=== PATIENT | female | born 1960 | race Caucasian/White ===

== ENCOUNTER 2018-09-21 10:22 | Emergency (ER) | payer MEDICARE, BC ==
[2018-09-21 11:34] LABS: Hematocrit 39.2 % (35-47); Hemoglobin 12.5 gm/dl (12.0-16.0); Mean Cell Volume 97.3 fl (78-100); Mean Corpuscular Hgb Concent. 31.9 g/dl (32-36); Mean Platelet Volume 9.2 fl (6-9.5); Platelet Count 222 K/mm3 (150-450); Red Blood Count 4.03 M/mm3 (4.1-5.4); Red Cell Distribution Width 14.5 % (11.5-14.0); White Blood Count 5.4 K/mm3 (4.0-10.5)
[2018-09-21] MEDS ORDERED: Sodium Chloride 0.9% 1000 ML 1,000 ML ONE (11:37)
[2018-09-21] MEDS ORDERED: Hydromorphone 1 mg/ml Ampule ONE (11:37)
[2018-09-21] MEDS: Sodium Chloride 0.9% 1000 ML 1,000 ML IV STA (11:40)
[2018-09-21] MEDS: Hydromorphone 1 mg/ml Ampule IV ONE (11:40)
[2018-09-21 11:45] LABS: ALKALINE PHOSPHATASE 117 U/L (38-126); ANION GAP 11.4 MEQ/L (5-15); BLOOD UREA NITROGEN 29 mg/dL (7-17); CHLORIDE 107 mmol/L (98-107); Calcium 9.2 mg/dL (8.4-10.2); Carbon Dioxide 26 mmol/L (22-30); Creatinine 1 0.81 mg/dL (0.52-1.04); Glucose 133 mg/dL (74-106); Potassium 4.6 mmol/L (3.5-5.1); SGOT/AST 58 U/L (14-36); SGPT/ALT 90 U/L (0-35); SODIUM 139 mmol/L (137-145); Total Protein 7.2 g/dL (6.3-8.2)
[2018-09-21 12:02] LABS: BAND 1 % (0.0-2.0); Eosinophil 6 % (0.00-3.0); Lymphocytes 29 % (24-44); Monocyte 11 % (0.0-12.0); Neutrophils 53 % (36.0-66.0); Platelet Estimate NORMAL (NORMAL); Total Cells Counted 100
[2018-09-21 13:09] VITALS: O2SAT 100
[2018-09-21 13:15] LABS: Appearance CLEAR (CLEAR); Bilirubin NEGATIVE (NEGATIVE); Blood NEGATIVE Ery/ul (0-5); Glucose NEGATIVE (NEGATIVE); Ketones TRACE (NEGATIVE); Leukocyte Esterase NEGATIVE (NEGATIVE); Nitrite NEGATIVE (NEGATIVE); Protein,Urine Dip NEGATIVE (Negative); Specific Gravity 1.016 (1.005-1.025); Urobilinogen NEGATIVE mg/dL (0-1)
[2018-09-21 14:06] VITALS: BP 162/93; PULSE 75
--- NOTE | 2018-09-21 14:30 | ERPHSYRPT ---
- History of Present Illness Source: patient Exam Limitations: no limitations Patient Subjective Stated Complaint: lower back pain that radiates into right leg for two weeks. Triage Nursing Assessment: ambulated to room per self holding lower back and moaning. skin w/d, color normal, resp easy. patient tearful at times. denies any urinary issues at this time. states has been having tests done for RA Physician History: Pt is a 57 y/o female with a h/o OA, that had two weeks of back pain, in the lumbar region. Pt states, the pain radiates to the front of her R thigh. The pain is worse with ambulation and flexion of the spine. Pt denies dysuria, frequency and urgency. No F/C/S. Timing/Duration: week(s) Method of Injury: unknown Quality: sharp, stabbing Back Pain Location: lumbar spine Back Pain Radiation: upper legs (R thigh) Severity of Pain-Max: severe Severity of Pain-Current: mild Modifying Factors: Improves With: pain medication Associated Symptoms: denies symptoms Previous symptoms: no prior history Allergies/Adverse Reactions: codeine Allergy (Verified 09/21/18 10:38) Home Medications: Atorvastatin Calcium [Lipitor] 40 mg PO DAILY 09/21/18 [History] Citalopram Hydrobromide 20 mg* [ceLEXa 20 MG] 20 mg PO DAILY 09/21/18 [ History] Gabapentin 200 mg PO DAILY 09/21/18 [History] Gabapentin 300 mg PO HS 09/21/18 [History] KETOROLAC trometh 30 mg Inj [TORAdol 30 mg Injection] 30 mg IJ [History] Leucovorin Calcium 5 mg PO WEEKLY 09/21/18 [History] Levothyroxine Sodium 112 mcg PO DAILY 09/21/18 [History] Methotrexate Sodium 2.5 mg [Trexall 2.5 mg] 2.5 mg PO UD 09/21/18 [History ] Nalbuphine HCl 20 mg IJ 09/21/18 [History] Omeprazole 20 mg PO DAILY 09/21/18 [History] Tizanidine HCl 4 mg [Zanaflex 4 MG] 4 mg PO DAILY 09/21/18 [History] sulfaSALAzine [Sulfasalazine] 500 mg PO DAILY 09/21/18 [History] Hx Tetanus, Diphtheria Vaccination/Date Given: No Hx Influenza Vaccination/Date Given: No Hx Pneumococcal Vaccination/Date Given: Yes - Review of Systems Constitutional: No Fever, No Chills Eyes: No Symptoms Ears, Nose, & Throat: No Symptoms Respiratory: No Cough, No Dyspnea Cardiac: No Chest Pain, No Edema, No Syncope Abdominal/Gastrointestinal: No Abdominal Pain, No Nausea, No Vomiting, No Diarrhea Genitourinary Symptoms: No Dysuria Musculoskeletal: Back Pain (Lumbar area), No Neck Pain Neurological: No Dizziness, No Focal Weakness, No Sensory Changes - Past Medical History Pertinent Past Medical History: Yes Neurological History: Migraines Endocrine Medical History: Hypothyroidism Musculoskeletal History: Rheumatoid Arthritis GI Medical History: Gallbladder Disease Female Reproductive Disorders: Other - Past Surgical History Past Surgical History: Yes Gastrointestinal: Appendectomy, Cholecystectomy Other Surgical History: tubes and ovaries removed, partial thyroid removed - Social History Smoking Status: Never smoker Exposure to second hand smoke: No Drug Use: none Patient Lives Alone: No - Nursing Vital Signs Nursing Vital Signs: Initial Vital Signs Temperature 97.5 F 09/21/18 10:32 Pulse Rate 98 H 09/21/18 10:32 Respiratory Rate 18 09/21/18 10:32 Blood Pressure 125/83 09/21/18 10:32 O2 Sat by Pulse Oximetry 100 09/21/18 10:32 Pain Scale Pain Intensity [Back] 10 Pain Intensity 0 - Physical Exam General Appearance: moderate distress (Secondary to pain) Eye Exam: PERRL/EOMI, eyes nml inspection Neck Exam: normal inspection, non-tender, supple, full range of motion, No meningismus, No midline tenderness Respiratory Exam: normal breath sounds, lungs clear, No respiratory distress Cardiovascular Exam: regular rate/rhythm, normal heart sounds Gastrointestinal Exam: soft, No tenderness, No mass Back Exam: normal range of motion, muscle spasm, other (tenderness with flexion of the hip on R) Extremity Exam: normal inspection, normal range of motion, No calf tenderness, No pedal edema Neurologic Exam: alert, oriented x 3, 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, 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, normal mood/affect, nml station & gait, sensation nml, No motor deficits SpO2 Interpretation: normal SpO2: 100 - Course Nursing assessment & vital signs reviewed: Yes - Radiology Exams L-Spine X-ray Interpretation: Interpreted by me (levoscoliosis) - CT Exams Lumbar Spine CT Interpretation: Other (DDD, stenosis of the spine and facets.) Ordered Tests: Active Orders 24 hr Category Date Time Status IV Insertion STAT Care 09/21/18 10:48 Active LUMBAR COMPLETE (MIN 4 VIEWS) Stat Exams 09/21/18 10:49 Taken LUMBAR SPINE W/O [CT] Stat Exams 09/21/18 11:49 Taken CBC W DIFF Stat Lab 09/21/18 11:30 Completed CMP Stat Lab 09/21/18 11:30 Completed Manual Differential NC Stat Lab 09/21/18 11:30 Completed UA W/RFX UR CULTURE Stat Lab 09/21/18 13:04 Completed Medication Summary Discontinued Medications Generic Name Dose Route Start Last Admin Trade Name Freq PRN Reason Stop Dose Admin Hydromorphone HCl 1 mg 09/21/18 10:48 09/21/18 11:40 Hydromorphone 1 Mg/Ml Ampule IV 09/21/18 10:49 1 mg STAT ONE Administration Hydromorphone HCl Confirm 09/21/18 11:37 Hydromorphone 1 Mg/Ml Ampule Administered 09/21/18 11:38 Dose 1 mg .ROUTE .STK-MED ONE Sodium Chloride 1,000 mls @ 999 mls/hr 09/21/18 10:48 09/21/18 11:40 Sodium Chloride 0.9% 1000 Ml IV 09/21/18 11:48 999 mls/hr .Q1H1M STA Administration Sodium Chloride Confirm 09/21/18 11:37 Sodium Chloride 0.9% 1000 Ml Administered 09/21/18 11:38 Dose 1,000 mls @ ud .ROUTE .STK-MED ONE Lab/Rad Data: Laboratory Result Diagrams 09/21/18 11:30 09/21/18 11:30 Laboratory Results 09/21/18 09/21/18 09/21/18 Range/Units 13:04 11:30 11:30 WBC 5.4 (4.0-10.5) K/mm3 RBC 4.03 L (4.1-5.4) M/mm3 Hgb 12.5 (12.0-16.0) gm/dl Hct 39.2 (35-47) % MCV 97.3 (78-100) fl MCH 31.0 (26-32) pg MCHC 31.9 L (32-36) g/dl RDW 14.5 H (11.5-14.0) % Plt Count 222 (150-450) K/mm3 MPV 9.2 (6-9.5) fl Segmented Neutrophils 53 (36.0-66.0) % Band Neutrophils 1 (0.0-2.0) % Lymphocytes (Manual) 29 (24-44) % Monocytes (Manual) 11 (0.0-12.0) % Eosinophils (Manual) 6 H (0.00-3.0) % Platelet Estimate NORMAL (NORMAL) RBC Morphology NORMAL Sodium 139 (137-145) mmol/L Potassium 4.6 (3.5-5.1) mmol/L Chloride 107 (98-107) mmol/L Carbon Dioxide 26 (22-30) mmol/L Anion Gap 11.4 (5-15) MEQ/L BUN 29 H (7-17) mg/dL Creatinine 0.81 (0.52-1.04) mg/dL Estimated GFR > 60.0 ML/MIN Glucose 133 H (74-106) mg/dL Calcium 9.2 (8.4-10.2) mg/dL Total Bilirubin 0.70 (0.2-1.3) mg/dL AST 58 H (14-36) U/L ALT 90 H (0-35) U/L Alkaline Phosphatase 117 (38-126) U/L Serum Total Protein 7.2 (6.3-8.2) g/dL Albumin 4.0 (3.5-5.0) g/dL Urine Color YELLOW (YELLOW) Urine Appearance CLEAR (CLEAR) Urine pH 7.0 (5-6) Ur Specific [place] 1.016 (1.005-1.025) Urine Protein NEGATIVE (Negative) Urine Ketones TRACE (NEGATIVE) Urine Blood NEGATIVE (0-5) Maximino/ul Urine Nitrite NEGATIVE (NEGATIVE) Urine Bilirubin NEGATIVE (NEGATIVE) Urine Urobilinogen NEGATIVE (0-1) mg/dL Ur Leukocyte Esterase NEGATIVE (NEGATIVE) Urine WBC (Auto) NONE (0-5) /HPF Urine RBC (Auto) NONE (0-2) /HPF U Epithel Cells (Auto) NONE (FEW) /HPF Urine Bacteria (Auto) NONE (NEGATIVE) /HPF Urine Culture Reflexed NO (NO) Urine Glucose NEGATIVE (NEGATIVE) mg/dL - Progress Progress: improved Progress Note: 09/21/18 14:33 Pt had Dilaudid 1mg IV and her pain improved. Labs were normal with no leukocytosis, and clean UA. CT of the spine showed stenosis, and DDD. Pt was informed about the results of imaging, and is encouraged to f/u with PCP, and her compliance testing analyst. Will see patient in: office Counseled pt/family regarding: need for follow-up - Departure Time of Disposition: 14:35 Departure Disposition: Home Clinical Impression: Lumbar back pain with radiculopathy affecting right lower extremity Condition: Stable Critical Care Time: No Referrals: LAURA HAYDEN [Primary Care Provider] - Additional Instructions: Take pain meds as were prescribed to you before. F/U with PCP and compliance testing analyst.
--- NOTE | 2018-09-21 21:36 | XRAY ---
Indication: Severe low back pain. No known injury. Comparison: None 5 views of the lumbar spine demonstrates 5 lumbar vertebral segments with moderate levorotoscoliosis centered at L2 and mild/moderate multilevel degenerative spondylosis including bilateral L4-S1 degenerative facet hypertrophy. No acute fracture, subluxation, or pars interarticularis defect. Incidental cholecystectomy clips. Impression: Nonacute lumbar spine with chronic features.
--- NOTE | 2018-09-21 21:39 | XRAY ---
Indication: Severe back pain. No known injury. Multiple contiguous axial images obtained through the lumbar spine. Sagittal and coronal reformatted images obtained. Comparison: None Axial images at the T12-L1 level negative for large disc herniation, spinal canal, or foraminal stenosis. At the L1-L2-L3-L4 levels, there is mild annular disc bulge slightly effacing the thecal sac. Also mild degenerative vacuum disc phenomena at the L1-L3 levels. Facets are symmetric. No large disc herniation, spinal canal, foraminal stenosis. At the L4-L5-S1 levels, there is left foraminal narrowing due to broad-based disc osteophyte complex and mild/moderate bilateral degenerative facet hypertrophy. No large disc herniation or spinal canal stenosis. Sagittal and coronal reformatted images demonstrates moderate levorotoscoliosis centered at the L2-L3 level. Mild L1-L3 and L4-L5 disc space narrowing. No acute compression fracture or subluxation. Visualized noncontrasted soft tissues demonstrates cholecystectomy clips and minimal aortoiliac calcifications. Impression: 1. Multilevel degenerative disc disease and levorotoscoliosis. 2. Negative acute fracture/subluxation. Comment: Preliminary interpretation was made by [facility]. No critical discrepancy. CTDI 66.86
== END 2018-09-21 14:45 | disposition home or self-care (01) ==
LOC: ED 10:22
DX: M54.5 Low back pain (principal); M54.10 Radiculopathy, site unspecified; E03.9 Hypothyroidism, unspecified; M06.9 Rheumatoid arthritis, unspecified; Z79.899 Other long term (current) drug therapy
CPT/HCPCS: 36000; 36415; 72110; 72131; 80053; 81001; 85025; 96360; 96374; 99284; J1170

== ENCOUNTER 2021-10-07 11:14 | Emergency (ER) | payer MEDICARE, BC ==
[2021-10-07] MEDS ORDERED: Sodium Chloride 0.9% 1000 ML 1,000 ML IV STA ×2 (11:23→12:32)
[2021-10-07] MEDS ORDERED: Zofran 4 MG/2 ML VIAL IV ONE (11:23)
[2021-10-07] MEDS ORDERED: Zofran 4 MG/2 ML VIAL ONE (11:38)
[2021-10-07] MEDS ORDERED: Sodium Chloride 0.9% 1000 ML 1,000 ML ONE ×2 (11:38→12:42)
--- NOTE | 2021-10-07 11:45 | ERPHSYRPT ---
- History of Present Illness Time Seen by Provider: 10/07/21 11:41 Historian: patient Exam Limitations: no limitations Patient Subjective Stated Complaint: vomiting and diarrhea since yesterday. Triage Nursing Assessment: C/o vomiting and diarrhea since yesterday. 10 diarrhea stools since midnight last night. vomiting today off and on, c/o cram ping in abd. No fever. Physician History: vomiting and diarrhea since yesterday. 10 diarrhea stools since midnight last night. vomiting today off and on, c/o cramping in abd. No fever. Started yesterday afier eating sandwich. Timing/Duration: yesterday Activities at Onset: none Severity of Pain-Max: none Severity of Pain-Current: none Associated Symptoms: diarrhea, nausea, vomiting Previous symptoms: no prior history Allergies/Adverse Reactions: codeine Allergy (Verified 09/21/18 10:38) Home Medications: Atorvastatin Calcium [Lipitor] 40 mg PO DAILY 09/21/18 [History] Citalopram Hydrobromide 20 mg* [ceLEXa 20 MG] 20 mg PO DAILY 09/21/18 [History] Gabapentin 200 mg PO DAILY 09/21/18 [History] Gabapentin 300 mg PO HS 09/21/18 [History] KETOROLAC trometh 30 mg Inj [TORAdol 30 mg Injection] 30 mg [facility] 09/21/18 [History] Leucovorin Calcium 5 mg PO WEEKLY 09/21/18 [History] Levothyroxine Sodium 112 mcg PO DAILY 09/21/18 [History] Methotrexate Sodium 2.5 mg [Trexall 2.5 mg] 2.5 mg PO UD 09/21/18 [History] Nalbuphine HCl 20 mg [facility] 09/21/18 [History] Omeprazole 20 mg PO DAILY 09/21/18 [History] Tizanidine HCl 4 mg [Zanaflex 4 MG] 4 mg PO DAILY 09/21/18 [History] sulfaSALAzine [Sulfasalazine] 500 mg PO BID 09/21/18 [History] Cyanocobalamin 1000 Mcg/ml [Cyanocobalamin B-12 1000 MCG/ML] 1,000 mcg IM WEEKLY 10/07/21 [History] Hx Tetanus, Diphtheria Vaccination/Date Given: No Hx Influenza Vaccination/Date Given: No Hx Pneumococcal Vaccination/Date Given: Yes Immunizations Up to Date: Yes Travel Risk - International Travel Have you traveled outside of the country in past 3 weeks: No - Coronavirus Screening Symptoms: Vomiting/Diarrhea Close contact with a COVID-19 positive Pt in past 14-21 Days: No - Vaccine Status Have you recieved a Covid-19 vaccination: Yes Clinical Data Management Manager: Moderna - Vaccination Dates Date of 2cond Vaccination (if applicable): October 2020 - Review of Systems Constitutional: No Fever, No Chills Eyes: No Symptoms Ears, Nose, & Throat: No Symptoms Respiratory: No Cough, No Dyspnea Cardiac: No Chest Pain, No Edema, No Syncope Abdominal/Gastrointestinal: Nausea, Vomiting, Diarrhea, No Abdominal Pain Genitourinary Symptoms: No Dysuria Musculoskeletal: No Back Pain, No Neck Pain Skin: No Rash Neurological: No Dizziness, No Focal Weakness, No Sensory Changes Psychological: No Symptoms Endocrine: No Symptoms All Other Systems: Reviewed and Negative - Past Medical History Pertinent Past Medical History: Yes Neurological History: Migraines Endocrine Medical History: Hypothyroidism Musculoskeletal History: Rheumatoid Arthritis GI Medical History: Gallbladder Disease Female Reproductive Disorders: Other - Past Surgical History Past Surgical History: Yes Gastrointestinal: Appendectomy, Cholecystectomy Other Surgical History: tubes and ovaries removed, partial thyroid removed. Low back surgery 2020 at [facility]. - Social History Smoking Status: Never smoker Exposure to second hand smoke: No Drug Use: none Patient Lives Alone: Yes - Nursing Vital Signs Nursing Vital Signs: Initial Vital Signs Temperature 98.5 F 10/07/21 11:21 Pulse Rate 86 10/07/21 11:21 Respiratory Rate 20 10/07/21 11:21 Blood Pressure 138/97 10/07/21 11:21 O2 Sat by Pulse Oximetry 99 10/07/21 11:21 Pain Scale Pain Intensity 5 - Physical Exam General Appearance: no apparent distress, alert Eye Exam: PERRL/EOMI, eyes nml inspection Ears, Nose, Throat Exam: normal ENT inspection, pharynx normal, moist mucous membranes Neck Exam: normal inspection, non-tender, supple, full range of motion Respiratory Exam: normal breath sounds, lungs clear, No respiratory distress Cardiovascular Exam: regular rate/rhythm, normal heart sounds Gastrointestinal/Abdomen Exam: soft, No tenderness, No mass Back Exam: normal inspection, normal range of motion, No CVA tenderness, No vertebral tenderness Extremity Exam: normal inspection, normal range of motion, pelvis stable Neurologic Exam: alert, oriented x 3, cooperative, normal mood/affect, nml cerebellar function, sensation nml, No motor deficits Skin Exam: normal color, warm, dry SpO2: 99 - Course Nursing assessment & vital signs reviewed: Yes Ordered Tests: Active Orders 24 hr Category Date Time Status AMYLASE Stat Lab 10/07/21 11:35 Completed CBC W DIFF Stat Lab 10/07/21 11:35 Completed CMP Stat Lab 10/07/21 11:35 Completed CULTURE,URINE Stat Lab 10/07/21 11:36 Received LIPASE Stat Lab 10/07/21 11:35 Completed Urine Triage Profile Stat Lab 10/07/21 11:36 Completed Medication Summary Discontinued Medications Generic Name Dose Route Start Last Admin Trade Name Freq PRN Reason Stop Dose Admin Sodium Chloride 1,000 mls @ 999 mls/hr 10/07/21 11:23 10/07/21 12:43 Sodium Chloride 0.9% 1000 Ml IV 10/07/21 12:23 Infused .Q1H1M STA Infusion Sodium Chloride Confirm 10/07/21 11:38 Sodium Chloride 0.9% 1000 Ml Administered 10/07/21 11:39 Dose 1,000 mls @ ud .ROUTE .STK-MED ONE Sodium Chloride 1,000 mls @ 999 mls/hr 10/07/21 12:32 10/07/21 13:51 Sodium Chloride 0.9% 1000 Ml IV 10/07/21 13:32 Infused .Q1H1M STA Infusion Sodium Chloride Confirm 10/07/21 12:42 Sodium Chloride 0.9% 1000 Ml Administered 10/07/21 12:43 Dose 1,000 mls @ ud .ROUTE .STK-MED ONE Ondansetron HCl 4 mg 10/07/21 11:23 10/07/21 11:39 Ondansetron Hcl 4 Mg/2 Ml Vial IV 10/07/21 11:24 4 mg STAT ONE Administration Ondansetron HCl Confirm 10/07/21 11:38 Ondansetron Hcl 4 Mg/2 Ml Vial Administered 10/07/21 11:39 Dose 4 mg .ROUTE .STK-MED ONE Lab/Rad Data: Laboratory Result Diagrams 10/07/21 11:35 10/07/21 11:35 Laboratory Results 10/07/21 10/07/2122 Range/Units 11:36 11:36 11:35 WBC (4.0-10.5) K/mm3 RBC (4.1-5.4) M/mm3 Hgb (12.0-16.0) gm/dl Hct (35-47) % MCV (78-100) fl MCH (26-32) pg MCHC (32-36) g/dl RDW (11.5-14.0) % Plt Count (150-450) K/mm3 MPV (7.5-11.0) fl Gran % (36.0-66.0) % Eos # (Auto) (0-0.5) Absolute Lymphs (auto) (1.0-4.6) Absolute Monos (auto) (0.0-1.3) Lymphocytes % (24.0-44.0) % Monocytes % (0.0-12.0) % Eosinophils % (0.00-5.0) % Basophils % (0.0-0.4) % Absolute Granulocytes (1.4-6.9) Basophils # (0-0.4) Sodium 139 (137-145) mmol/L Potassium 4.4 (3.5-5.1) mmol/L Chloride 109 H (98-107) mmol/L Carbon Dioxide 21 L (22-30) mmol/L Anion Gap 13.1 (5-15) MEQ/L BUN 17 (7-17) mg/dL Creatinine 0.88 (0.52-1.04) mg/dL Estimated GFR > 60.0 ML/MIN Glucose 107 H (74-106) mg/dL Calcium 8.7 (8.4-10.2) mg/dL Total Bilirubin 0.70 (0.2-1.3) mg/dL AST 85 H (14-36) U/L ALT 47 H (0-35) U/L Alkaline Phosphatase 119 (38-126) U/L Serum Total Protein 7.6 (6.3-8.2) g/dL Albumin 3.8 (3.5-5.0) g/dL Amylase 182 H (30-110) U/L Lipase 189 (23-300) U/L Urinalys Dipstick Clnc MAIN LAB Urine Color YELLOW (YELLOW) Urine Appearance CLEAR (CLEAR) Urine pH 6.0 (5-6) Ur Specific [place] >=1.030 (1.005-1.025) POC Urine Protein Conf 30 (Negative) Urine Ketones NEGATIVE (NEGATIVE) Urine Nitrite NEGATIVE (NEGATIVE) Urine Bilirubin SMALL (NEGATIVE) Urine Urobilinogen 0.2 (0-1) mg/dL Urine Leukocytes NEGATIVE (NEGATIVE) Urine WBC (Auto) 6-10 (0-5) /HPF Urine RBC (Auto) 26-50 (0-2) /HPF U Epithel Cells (Auto) FEW (FEW) /HPF Urine Bacteria (Auto) RARE (NEGATIVE) /HPF Urine RBC LARGE (0-5) Maximino/ul Urine Mucus (Auto) MANY (NEGATIVE) /HPF Ur Culture Indicated? YES Urine Glucose NEGATIVE (NEGATIVE) mg/dL Urine Opiates Level NEGATIVE (NEGATIVE) Ur Methadone NEGATIVE (NEGATIVE) Urine Barbiturates NEGATIVE (NEGATIVE) Ur Phencyclidine (PCP) NEGATIVE (NEGATIVE) Urine Amphetamine NEGATIVE (NEGATIVE) U Benzodiazepine Level NEGATIVE (NEGATIVE) Urine Cocaine NEGATIVE (NEGATIVE) Urine Marijuana (THC) NEGATIVE (NEGATIVE) 10/07/21 Range/Units 11:35 WBC 4.9 (4.0-10.5) K/mm3 RBC 3.59 L (4.1-5.4) M/mm3 Hgb 12.3 (12.0-16.0) gm/dl Hct 38.1 (35-47) % MCV 106.1 H (78-100) fl MCH 34.3 H (26-32) pg MCHC 32.3 (32-36) g/dl RDW 13.0 (11.5-14.0) % Plt Count 207 (150-450) K/mm3 MPV 9.2 (7.5-11.0) fl Gran % 57.3 (36.0-66.0) % Eos # (Auto) 0.07 (0-0.5) Absolute Lymphs (auto) 1.45 (1.0-4.6) Absolute Monos (auto) 0.55 (0.0-1.3) Lymphocytes % 29.5 (24.0-44.0) % Monocytes % 11.2 (0.0-12.0) % Eosinophils % 1.4 (0.00-5.0) % Basophils % 0.6 (0.0-0.4) % Absolute Granulocytes 2.81 (1.4-6.9) Basophils # 0.03 (0-0.4) Sodium (137-145) mmol/L Potassium (3.5-5.1) mmol/L Chloride (98-107) mmol/L Carbon Dioxide (22-30) mmol/L Anion Gap (5-15) MEQ/L BUN (7-17) mg/dL Creatinine (0.52-1.04) mg/dL Estimated GFR ML/MIN Glucose (74-106) mg/dL Calcium (8.4-10.2) mg/dL Total Bilirubin (0.2-1.3) mg/dL AST (14-36) U/L ALT (0-35) U/L Alkaline Phosphatase (38-126) U/L Serum Total Protein (6.3-8.2) g/dL Albumin (3.5-5.0) g/dL Amylase (30-110) U/L Lipase (23-300) U/L Urinalys Dipstick Clnc Urine Color (YELLOW) Urine Appearance (CLEAR) Urine pH (5-6) Ur Specific [place] (1.005-1.025) POC Urine Protein Conf (Negative) Urine Ketones (NEGATIVE) Urine Nitrite (NEGATIVE) Urine Bilirubin (NEGATIVE) Urine Urobilinogen (0-1) mg/dL Urine Leukocytes (NEGATIVE) Urine WBC (Auto) (0-5) /HPF Urine RBC (Auto) (0-2) /HPF U Epithel Cells (Auto) (FEW) /HPF Urine Bacteria (Auto) (NEGATIVE) /HPF Urine RBC (0-5) Maximino/ul Urine Mucus (Auto) (NEGATIVE) /HPF Ur Culture Indicated? Urine Glucose (NEGATIVE) mg/dL Urine Opiates Level (NEGATIVE) Ur Methadone (NEGATIVE) Urine Barbiturates (NEGATIVE) Ur Phencyclidine (PCP) (NEGATIVE) Urine Amphetamine (NEGATIVE) U Benzodiazepine Level (NEGATIVE) Urine Cocaine (NEGATIVE) Urine Marijuana (THC) (NEGATIVE) - Progress Progress: improved Counseled pt/family regarding: lab results, diagnosis, need for follow-up - Departure Departure Disposition: Home Clinical Impression: Dehydration, Gastroenteritis and colitis, viral, Acute renal injury due to hypovolemia Condition: Stable Critical Care Time: No Referrals: LAURA HAYDEN [Primary Care Provider] - Follow Up with PCP/3 days Instructions: Dehydration, Adult (DC), Acute Kidney Injury (DC) Additional Instructions: Discharge/Care Plan GONZALO ORTEGA was seen on 10/07/21 in the Emergency Room. The patient was counseled regarding Diagnosis,Lab results, Imaging studies, need for follow up and when to return to the Emergency Room. Prescriptions given: Discharge Note I have spoken with the patient and/or caregivers. I have explained the patient's condition, diagnosis and treatment plan based on the information available to me at this time. I have answered the patient's and/or caregiver's questions and addressed any concerns. The patient and/or caregivers have as good understanding of the patient's diagnosis, condition and treatment plan as can be expected at this point. The vital signs have been stable. The patient's condition is stable and appropriate for discharge from the emergency department. The patient will pursue further outpatient evaluation with the primary care physician or other designated or consulting physician as outlined in the discha rge instructions. The patient and/or caregivers are agreeable to this plan of care and follow-up instructions have been explained in detail. The patient and/or caregivers have received these instruction. The patient/and or caregivers are aware that any significant change in condition or worsening of symptoms should prompt an immediate return to this or the closest emergency department or call 911. GONZALO ORTEGA was seen on 10/07/21 n the Emergency Room. At that time you were treated for an emergent condition, during your visit Laboratory, Radiology and/or other procedures may have been ordered. It is very important that you follow-up with your Primary Care Physician LAURA HAYDEN within the next 24-48 hours to review your Emergency Room visit and the final results of testing that was ordered. Some test results such as Urine Cultures, Blood Cultures, and other cultures if ordered will not be finalized for 24-48 hours. If you do not have a Primary Care Provider please call the medical records department at [phone] ext [phone] to obtain a copy of your results or you may sign into our patient portal to obtain these results by visiting us @ [email or web address] and completing the following steps: 1. Click on the Patient Portal link 2. Click the Patient Self Enrollment Link to complete the enrollment form and entering your 3. Once the enrollment form is completed you will receive an email with a temporary ID and password at the email address you provided. 4. Next choose a user name and password. Your user name must be at least 4 characters long and your password must be at least 4 characters long. 5. Choose a security question from the list and provide your answer to the question. If you already have signed into the Health Portal you may access your Health Care Information 04/02 by the following steps: 1. Login to our website @ [email or web address] 2. Enter your original user name and password. FAQS The [facility] Portal is an online tool that contains your Lab Results, Radi ology Reports, Visit History, Discharge Instructions and Health Summary Lab and Radiology Results will not be available for 72 hours on the portal. The Portal is a secure site, passwords are encryted and URLs are re-written so they cannot be copied and pasted. You and authorized family members are the only ones who can access your Portal. Also there is a timeout feature that protects your information if you leave the Portal page open. If you have technical difficulty please use the Contact Us link on the page this will allow you to submit any questions you have regarding the Portal or you may contact the Medical Record Department at [phone] ext [phone]. Prescriptions: Ondansetron ODT 4 MG [Zofran Odt 4 mg] 4 mg PO Q6H PRN PRN #10 tablet PRN Reason: Nausea/Vomiting
[2021-10-07 12:10] LABS: Amphetamine,Urine NEGATIVE (NEGATIVE); Appearance CLEAR (CLEAR); Barbiturate,Urine NEGATIVE (NEGATIVE); Benzodiazepine,Urine NEGATIVE (NEGATIVE); Cocaine,Urine NEGATIVE (NEGATIVE); Glucose NEGATIVE (NEGATIVE); Methadone,Urine NEGATIVE (NEGATIVE); Opiate,Urine NEGATIVE (NEGATIVE); PCP,Urine NEGATIVE (NEGATIVE); THC,Urine NEGATIVE (NEGATIVE)
[2021-10-07 12:11] LABS: Bilirubin SMALL (NEGATIVE); Dipstick done @ ? MAIN LAB; Ketones NEGATIVE (NEGATIVE); Nitrite NEGATIVE (NEGATIVE); Protein,Urine Dip 30 (Negative); RBC LARGE Ery/ul (0-5); Specific Gravity >=1.030 (1.005-1.025); Urobilinogen 0.2 mg/dL (0-1)
[2021-10-07 12:14] LABS: Epithelial Cells FEW /HPF (FEW); Mucus MANY /HPF (NEGATIVE); RBC 26-50 /HPF (0-2)
[2021-10-07 12:15] LABS: Bacteria RARE /HPF (NEGATIVE)
[2021-10-07 12:21] LABS: Absolute Neutrophil Ct (ANC) 2.81 (1.4-6.9); Basophil (Absolute #) 0.03 (0-0.4); Eosinophil % 1.4 % (0.00-5.0); Eosinophil (Absolute #) 0.07 (0-0.5); Hematocrit 38.1 % (35-47); Hemoglobin 12.3 gm/dl (12.0-16.0); Lymphocyte (Absolute #) 1.45 (1.0-4.6); Lymphocytes % 29.5 % (24.0-44.0); Mean Cell Volume 106.1 fl (78-100); Mean Corpuscular Hemoglobin 34.3 pg (26-32); Mean Corpuscular Hgb Concent. 32.3 g/dl (32-36); Mean Platelet Volume 9.2 fl (7.5-11.0); Monocyte (Absolute #) 0.55 (0.0-1.3); Monocytes % 11.2 % (0.0-12.0); Neutrophil % 57.3 % (36.0-66.0); Platelet Count 207 K/mm3 (150-450); Red Blood Count 3.59 M/mm3 (4.1-5.4); White Blood Count 4.9 K/mm3 (4.0-10.5)
[2021-10-07 12:23] LABS: ALBUMIN 3.8 g/dL (3.5-5.0); ALKALINE PHOSPHATASE 119 U/L (38-126); AMYLASE 182 U/L (30-110); ANION GAP 13.1 MEQ/L (5-15); BLOOD UREA NITROGEN 17 mg/dL (7-17); CHLORIDE 109 mmol/L (98-107); Calcium 8.7 mg/dL (8.4-10.2); Carbon Dioxide 21 mmol/L (22-30); Creatinine 1 0.88 mg/dL (0.52-1.04); EST GLOMERULAR FILTRATION RATE > 60.0 ML/MIN; Glucose 107 mg/dL (74-106); LIPASE 189 U/L (23-300); Potassium 4.4 mmol/L (3.5-5.1); SGOT/AST 85 U/L (14-36); SGPT/ALT 47 U/L (0-35); SODIUM 139 mmol/L (137-145); Total Protein 7.6 g/dL (6.3-8.2)
[2021-10-07 13:20] VITALS: BP 134/77; PULSE 76
[2021-10-07 13:51] VITALS: O2SAT 99
== END 2021-10-07 14:08 | disposition home or self-care (01) ==
LOC: ED 11:14
DX: A08.4 Viral intestinal infection, unspecified (principal); E86.0 Dehydration; N17.9 Acute kidney failure, unspecified; E86.1 Hypovolemia; R11.2 Nausea with vomiting, unspecified; R19.7 Diarrhea, unspecified; Z79.899 Other long term (current) drug therapy
CPT/HCPCS: 36000; 36415; 80053; 80307; 81015; 82150; 83690; 85025; 87086; 96360; 96374; 99284; J2405

== ENCOUNTER 2021-11-13 09:51 | Day surgery (SDC) | payer MEDICARE, BC ==
--- NOTE | 2021-11-13 09:28 | HP ---
DATE OF SURGERY: 11/13/2021 HISTORY OF PRESENT ILLNESS: The patient is a 61-year-old with no visible bloody stools. History of anemia. I feel she would benefit from upper endoscopy to evaluate for upper or lower GI source, last colonoscopy five or six years ago. PAST MEDICAL HISTORY: Migraines. Pernicious anemia. Rheumatoid arthritis. Hypothyroidism. Hypertension. Hyperlipidemia. Depression. Reflux. PAST SURGICAL HISTORY: Thyroidectomy. Back surgery. Endoscopy in the past. MEDICATIONS: Acyclovir, atorvastatin, cholecalciferol, citalopram, cyanocobalamin, diclofenac, ferrous sulfate, gabapentin, Infliximab. Nalbuphine, promethazine, tramadol, methotrexate, levothyroxine sodium, Sulfasalazine, leucovorin. ALLERGIES: CODEINE. TETANUS. FAMILY HISTORY: Heart disease. SOCIAL HISTORY: No smoking or alcohol abuse. REVIEW OF SYSTEMS: Fourteen systems reviewed. Negative or noncontributory as above and per preadmission questionnaire. PHYSICAL EXAMINATION: GENERAL: No acute distress. HEENT: Sclerae nonicteric. NECK: No JVD. CHEST: Equal excursion, nonlabored breathing. CVS: Regular rate and rhythm. ABDOMEN: Soft. No peritoneal signs. EXTREMITIES: No cyanosis. NEURO: Alert, oriented, moving extremities symmetrically. RECTAL: Deferred timed to endoscopy exam. PSYCH: Appropriate mood and affect. IMPRESSION: Anemia of unclear etiology. I feel she would benefit from upper endoscopy for evaluation. Risks and benefits explained in detail including but not limited to bleeding or infection, risk of bowel injury or perforation possibly requiring open procedure, risk of missed or nondiagnosis or incomplete exam possibly requiring barium enema, other studies or procedures. General risk of anesthesia or sedation, risk of bowel prep but not limited to, consent obtained. Will proceed with EGD and colonoscopy as an outpatient under MAC anesthesia.
[~2021-11-13 09:51] MED LIST: Lactated Ringers 1,000 ML IV SCH
[2021-11-13] MEDS ORDERED: Lactated Ringers 1,000 ML IV ONE (10:01)
[2021-11-13] MEDS ORDERED: Xylocaine-Mpf 2% 5 Ml Vial ONE (11:51)
[2021-11-13] MEDS ORDERED: Versed 2 MG/2 ML Injection ONE (11:51)
[2021-11-13] MEDS ORDERED: DIPRIVAN 200 MG/20 ML IV ONE ×2 (11:51→12:07)
[2021-11-13 13:50] VITALS: O2SAT 98
[2021-11-13 13:56] VITALS: BP 164/91; PULSE 78
--- NOTE | 2021-11-14 10:41 | OP ---
SURGERY DATE/TIME: 11/13/2021 1203 PREOPERATIVE DIAGNOSIS: Anemia, need for upper and lower endoscopy to evaluate for upper or lower GI source. POSTOPERATIVE DIAGNOSES: 1) ASA Class II. 2) Gastritis. 3) Small polyp transverse colon, sigmoid colon. 4) Patchy area of mild inflammation versus prep irritation of rectum. PROCEDURES: 1) EGD with cold biopsy of antrum to evaluate for Helicobacter pylori. 2) Colonoscopy to cecum. 3) Hot biopsy polypectomy small, early transverse colon polyp versus hyperplastic lesion. 4) Hot biopsy polypectomy early sigmoid colon polyp versus hyperplastic lesion, path pending. 5) Random cold biopsy patchy mild inflammation versus prep irritation in rectum. SURGEON: Dr. Abner Humphrey. ANESTHESIA: MAC. ESTIMATED BLOOD LOSS: Minimal. INDICATIONS: As noted above. Risks and benefits explained in detail and not limited to and consent obtained. DESCRIPTION OF PROCEDURE AND FINDINGS: The patient is taken to the endoscopy suite. MAC anesthesia introduced. After official time out and no disagreement with planned procedure, bite block positioned. Video gastroscope easily passed down the esophagus through the patent pylorus to the junction of second and third portion of the duodenum. First, second and third portion of duodenum, no signs of any ulcers or any obvious acute blood loss. The scope is pulled back in the stomach. She had some minimal to mild gastritis. Cold biopsy taken to evaluate for Helicobacter pylori. Good hemostasis noted. There were no signs of any ulcers. She did have a little bit of inflammation up in the fundus and a cold biopsy is taken in that area. There were no signs of any ulcers. Cold biopsy taken of fundal inflammation to evaluate for path as well. The scope is straightened. Gastroesophageal junction 40 cm. Z-line was crisp. No signs of any lesions. No signs of any masses or any other esophageal mucosal lesions on withdrawal of the scope. The patient tolerated this part of the procedure well. Attention was then turned to colonoscopy. Digital rectal exam did not reveal any rectal masses. She did have some small internal hemorrhoids. Video colonoscope inserted and passed up through the tortuous sigmoid, descending, transverse colon and ascending colon. With external pressure, the scope was able to be passed around to the cecum. Appendiceal orifice and valve well visualized and photo documented. Prep overall was fair. A little bit of liquidy, semisolid stool throughout the colon slightly limited the exam for very small lesions. The scope is slowly and carefully withdrawn. A small early polyp versus hyperplastic lesion in the transverse colon, sigmoid colon removed with hot biopsy forceps with brief bursts of cautery in the transverse colon and sigmoid colon. Otherwise, she had a few tiny diverticula but no significant diverticulosis. Otherwise the scope pulled back to the rectum and had some erythema and small petechial hemorrhages. Whether some of this inflammation contributes to some of her blood loss is unclear. Whether this is just simple prep irritation or she had some patchy proctitis, cold biopsy taken of this rectal inflammation. Good hemostasis was noted. The patient tolerated the procedure well. There were no immediate complications. There was no family available to discuss the findings with at this time. I will see her back in the office in the next week or two.
== END 2021-11-13 13:40 | disposition home or self-care (01) ==
LOC: SDC 09:51
PROVIDERS: ATTEND Surgery
DX: D64.9 Anemia, unspecified (principal); K29.70 Gastritis, unspecified, without bleeding; K63.5 Polyp of colon; K62.1 Rectal polyp; K64.8 Other hemorrhoids
CPT/HCPCS: J2250; J2704

== ENCOUNTER 2023-03-27 20:10 | Emergency (ER) | payer MEDICARE, BC ==
[2023-03-27 20:44] VITALS: BP 138/83; PULSE 93; RESP 16; TEMP 97.5; O2SAT 95
--- NOTE | 2023-03-27 21:02 | ERPHSYRPT ---
- History of Present Illness Time Seen by Provider: 03/27/23 20:40 Source: patient Exam Limitations: no limitations Patient Subjective Stated Complaint: pt states I was holding a wire cable while my was mowing. the cable came back and cut me Triage Nursing Assessment: pt ambulated into the er; pt is axo x4; c/o laceration; laceration present to rt lower leg; abrasion measuring 3 cm to left index; abrasion 1 cm to left ring finger; skin PDW; no respiratory distress present; vitals wnl Physician History: Patient is a 62-year-old female presents to our ED for evaluation of abrasion and lacerations. Patient states that she was holding a wire/dog bleed when her went by with a lawnmower. The lead got caught up on the lawnmower and whipped out of her hand. Patient has a superficial laceration to the left index finger. There is a small superficial laceration with abrasion on the right anterior tibia. Injury occurred just prior to arrival. Patient is allergic to tetanus toxoid. Patient declined pain medication. She states she had Ultram prior to arrival. Patient able to move her digits with little discomfort. Patient ambulatory. Patient on that basis refused an x-ray. No other injuries reported. Symptoms are mild to moderate in intensity. No specific worsening improving factors. The wounds were irrigated in our ED upon arrival by ED staff. at bedside. They voiced no other complaints or concerns at this time. Portions of this note were created with voice recognition technology. There may be grammatical, spelling, punctuation or sound alike errors Timing/Duration: today Severity: moderate Modifying Factors: Improves With: nothing Associated Symptoms: denies symptoms Allergies/Adverse Reactions: codeine Allergy (Verified 03/27/23 20:21) sumatriptan [From Imitrex] Allergy (Verified 03/27/23 20:21) Tetanus Vaccines and Toxoid Allergy (Verified 03/27/23 20:21) Home Medications: Atorvastatin Calcium [Lipitor] 40 mg PO DAILY 09/21/18 [History] Citalopram Hydrobromide 20 mg* [ceLEXa 20 MG] 20 mg PO DAILY 09/21/18 [History] Leucovorin Calcium 5 mg PO WEEKLY 09/21/18 [History] Levothyroxine Sodium 112 mcg PO DAILY 09/21/18 [History] Nalbuphine HCl 20 mg IJ UD 09/21/18 [History] sulfaSALAzine [Sulfasalazine] 500 mg PO BID 09/21/18 [History] Cyanocobalamin 1000 Mcg/ml [Cyanocobalamin B-12 1000 MCG/ML] 1,000 mcg IM WEEKLY 10/07/21 [History] Acyclovir 400 mg PO QID 11/08/21 [History] Cholecalciferol (Vitamin D3) [Vitamin D] 2,000 unit PO DAILY 11/08/21 [History] Diclofenac Sodium 100 gm TP DAILY 11/08/21 [History] Ferrous Sulfate 325 mg PO DAILY 11/08/21 [History] Gabapentin 600 mg PO BID 11/08/21 [History] Methotrexate Sodium/Pf [Methotrexate 1 Gram/40 ml Vial] 0.8 ml IJ WEEKLY 11/08/21 [History] Multivit with Minerals/Lutein [Vitrum Senior Tablet] 1 each PO DAILY 11/08/21 [History] Nalbuphine HCl 20 mg IJ DAILY PRN PRN 11/08/21 [History] Promethazine HCl 25 mg IJ Q6HPRN PRN 11/08/21 [History] Tramadol HCl 50 mg [Ultram 50 mg] 50 mg PO Q6H PRN PRN 11/08/21 [History] inFLIXimab [Infliximab] 100 mg IV UD 11/08/21 [History] Hx Tetanus, Diphtheria Vaccination/Date Given: Yes Hx Influenza Vaccination/Date Given: No Hx Pneumococcal Vaccination/Date Given: Yes Travel Risk - International Travel Have you traveled outside of the country in past 3 weeks: No - Coronavirus Screening Are you exhibiting any of the following symptoms?: No Close contact with a COVID-19 positive Pt in past 14-21 Days: No - Vaccine Status Have you recieved a Covid-19 vaccination: Yes 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 [employer]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 - Vaccination Dates Date of 2cond Vaccination (if applicable): October 2020 - Review of Systems Constitutional: No Symptoms, No Fever, No Chills Eyes: No Symptoms Ears, Nose, & Throat: No Symptoms Respiratory: No Symptoms, No Cough, No Dyspnea Cardiac: No Symptoms, No Chest Pain, No Edema, No Syncope Abdominal/Gastrointestinal: No Symptoms, No Abdominal Pain, No Nausea, No Vomiting, No Diarrhea Genitourinary Symptoms: No Symptoms, No Dysuria Musculoskeletal: No Symptoms, No Back Pain, No Neck Pain Skin: No Symptoms, No Rash Neurological: No Symptoms, No Dizziness, No Focal Weakness, No Sensory Changes Psychological: No Symptoms Endocrine: No Symptoms Hematologic/Lymphatic: No Symptoms Immunological/Allergic: No Symptoms All Other Systems: Reviewed and Negative - Past Medical History Pertinent Past Medical History: Yes Neurological History: Migraines ENT History: No Pertinent History Cardiac History: High Cholesterol, Hypertension Respiratory History: No Pertinent History Endocrine Medical History: Hypothyroidism Musculoskeletal History: Osteoarthritis, Rheumatoid Arthritis GI Medical History: GERD, Gallbladder Disease History: No Pertinent History Psycho-Social History: No Pertinent History Female Reproductive Disorders: Endometriosis - Past Surgical History Past Surgical History: Yes Neuro Surgical History: No Pertinent History Cardiac: No Pertinent History Respiratory: No Pertinent History Gastrointestinal: Appendectomy, Cholecystectomy Genitourinary: No Pertinent History Musculoskeletal: No Pertinent History Female Surgical History: Hysterectomy Other Surgical History: tubes and ovaries removed, partial thyroid removed. Low back surgery 2020 at [facility]. - Social History Smoking Status: Smoker, status unknown Exposure to second hand smoke: No Drug Use: none Patient Lives Alone: No - Nursing Vital Signs Nursing Vital Signs: Initial Vital Signs Temperature 97.5 F 03/27/23 20:22 Pulse Rate 93 H 03/27/23 20:22 Respiratory Rate 16 03/27/23 20:22 Blood Pressure 138/83 03/27/23 20:22 O2 Sat by Pulse Oximetry 95 03/27/23 20:22 Pain Scale Pain Intensity 8 - Physical Exam General Appearance: no apparent distress, alert Eye Exam: PERRL/EOMI, eyes nml inspection Ears, Nose, Throat Exam: normal ENT inspection, moist mucous membranes Neck Exam: normal inspection, non-tender, full range of motion Respiratory Exam: normal breath sounds, lungs clear, No respiratory distress Cardiovascular Exam: regular rate/rhythm, normal heart sounds, normal peripheral pulses Gastrointestinal/Abdomen Exam: soft, normal bowel sounds, No tenderness, No mass Back Exam: normal inspection, normal range of motion, No CVA tenderness, No vertebral tenderness Extremity Exam: normal inspection, normal range of motion, pelvis stable, other (Wound at left index finger measures approximately 1.5 cm. Wound to right leg measures approximately 2 x 1.5 cm) Neurologic Exam: alert, oriented x 3, cooperative, normal mood/affect, nml cerebellar function, nml station & gait, sensation nml, No motor deficits Skin Exam: normal color, warm, dry, No rash Lymphatic Exam: No adenopathy SpO2 Interpretation: normal SpO2: 95 O2 Delivery: Room Air - Course Nursing assessment & vital signs reviewed: Yes - Progress Progress: improved Progress Note: Patient is a 62-year-old female presents to our ED for evaluation of laceration to left index finger and right anterior tibia. Patient declined pain medication as she had Ultram prior to arrival. Patient declined x-rays and she does not feel it is necessary. Tetanus not administered due to allergy. Prescription for Keflex forwarded to patient's pharmacy. Local wound care rendered in our ED. Wound irrigated. Steri-Strips applied. Patient to maintain the dressings for 48 hours. Patient agrees to follow-up with her primary care doctor within 48 hours for reevaluation. at bedside. They voiced no other complaints or concerns at this time. Portions of this note were created with voice recognition technology. There may be grammatical, spelling, punctuation or sound alike errors Complexity of problem addressed is low acute uncomplicated Complex of data reviewed and analyzed is none. Diagnosis made based on history and physical examination. No specialized testing ordered Risk complication and or risk of morbidity/mortality of patient management is moderate. Prescription forwarded to patient's pharmacy. Vital stable. Extremities are neurovascular intact distally. Compartments are soft. Cap refill less than 2 seconds. Time spent to discharge patient is approximately 10 to 15 minutes. No social determinants of health present to impede follow-up. Patient understands that if she continues to have pain at her digits/leg that x-rays would be indicated as patient declined x-rays today. 03/27/23 21:04 Counseled pt/family regarding: diagnosis, need for follow-up - Departure Departure Disposition: Home Clinical Impression: Laceration, Abrasion Condition: Stable Critical Care Time: No Referrals: LAURA HAYDEN [Primary Care Provider] - Follow up/PCP as directed Additional Instructions: Discharge/Care Plan GONZALO ORTEGA was seen on 03/27/23 in the Emergency Room. The patient was counseled regarding Diagnosis,Lab results, Imaging studies, need for follow up and when to return to the Emergency Room. Prescriptions given: Discharge Note I have spoken with the patient and/or caregivers. I have explained the patient's condition, diagnosis and treatment plan based on the information available to me at this time. I have answered the patient's and/or caregiver's questions and ad dressed any concerns. The patient and/or caregivers have as good understanding of the patient's diagnosis, condition and treatment plan as can be expected at this point. The vital signs have been stable. The patient's condition is stable and appropriate for discharge from the emergency department. The patient will pursue further outpatient evaluation with the primary care physician or other designated or consulting physician as outlined in the discharge instructions. The patient and/or caregivers are agreeable to this plan of care and follow-up instructions have been explained in detail. The patient and/or caregivers have received these instruction. The patient/and or caregivers are aware that any significant change in condition or worsening of symptoms should prompt an immediate return to this or the closest emergency department or call 911. Prescriptions: Cephalexin Mh 500 mg [Keflex 500 mg] 500 mg PO TID #21 cap
[2023-03-27] MEDS ORDERED: BACIGUENT PACKET ONE (21:06)
[2023-03-27] MEDS ORDERED: BACIGUENT PACKET TP ONE (21:06)
== END 2023-03-27 21:15 | disposition home or self-care (01) ==
LOC: ED 20:10
DX: S61.211A Laceration without foreign body of left index finger without damage to nail, initial encounter (principal); S81.811A Laceration without foreign body, right lower leg, initial encounter; W20.8XXA Other cause of strike by thrown, projected or falling object, initial encounter; Y92.007 Garden or yard of unspecified non-institutional (private) residence as the place of occurrence of the external cause; E78.5 Hyperlipidemia, unspecified; I10 Essential (primary) hypertension; Z79.891 Long term (current) use of opiate analgesic; Z79.899 Other long term (current) drug therapy
CPT/HCPCS: 99281; A9270-GY

== ENCOUNTER 2025-05-24 10:25 | Emergency (ER) | payer MEDICARE, BC ==
[2025-05-24 10:46] VITALS: RESP 16; TEMP 98.5
--- NOTE | 2025-05-24 10:57 | ERPHSYRPT ---
- History of Present Illness Patient Subjective Stated Complaint: 2 toradol injections yesterday with no relief Triage Nursing Assessment: Patient walks to the bed, crying softly. Breathing is easy, skin warm and dry. She states that she has a history of migraines and has been experiencing one since last night. She has n/v as well. She rates the pain 10/10 with throbbing and photophobia. She denies any other symptoms. Pupils are brisk, smile is symmetrical, strength is equal on both sides. Physician History: Migraine headache, patient has longstanding history of migraine headaches and had extensive workup and seen numerous physicians, she was on her way to get a prescription for her medication that controls her headache but apparently the pharmacy was out of her medication and she was directed to come to the emergency department, apparently she takes a generic form of Nubain and Compazine to control her symptoms Timing/Duration: day(s) Head Pain Location: global Severity of Pain-Max: severe Severity of Pain-Current: severe Recent Head Trauma: chronic headaches Modifying Factors: Improves With: exposure to light, noise Associated Symptoms: nausea/vomiting Previous symptoms: same symptoms as today Allergies/Adverse Reactions: codeine Allergy (Verified 03/27/23 20:21) sumatriptan [From Imitrex] Allergy (Verified 03/27/23 20:21) Tetanus Vaccines and Toxoid Allergy (Verified 03/27/23 20:21) Home Medications: Atorvastatin Calcium [Lipitor] 40 mg PO DAILY 09/21/18 [History] Leucovorin Calcium 5 mg PO WEEKLY 09/21/18 [History] Levothyroxine Sodium 88 mcg PO DAILY 09/21/18 [History] Cyanocobalamin 1000 Mcg/ml [Cyanocobalamin B-12 1000 MCG/ML] 1,000 mcg IM WEEKLY 10/07/21 [History] Cholecalciferol (Vitamin D3) [Vitamin D] 2,000 unit PO DAILY 11/08/21 [History] Diclofenac Sodium 100 gm TP DAILY 11/08/21 [History] Ferrous Sulfate 325 mg PO DAILY 11/08/21 [History] Methotrexate Sodium/Pf [Methotrexate 1 Gram/40 ml Vial] 0.3 ml IJ WEEKLY 11/08/21 [History] Multivit with Minerals/Lutein [Vitrum Senior Tablet] 1 each PO DAILY 11/08/21 [History] inFLIXimab [Infliximab] 100 mg IV UD 11/08/21 [History] Duloxetine HCl 60 mg PO DAILY 05/24/25 [History] Levocetirizine Dihydrochloride [Allergy Relief] 5 mg PO DAILY 05/24/25 [History] Montelukast Sodium 10 mg [Singulair 10 MG] 10 mg PO DAILY 05/24/25 [History] Hx Tetanus, Diphtheria Vaccination/Date Given: Yes Hx Influenza Vaccination/Date Given: No Hx Pneumococcal Vaccination/Date Given: Yes Travel Risk - International Travel Have you traveled outside of the country in past 3 weeks: No - Emerging Infectious Disease Are you exhibiting symptoms associated with any current EIDs: No - Past Medical History Pertinent Past Medical History: Yes Neurological History: Migraines ENT History: No Pertinent History Cardiac History: High Cholesterol, Hypertension Respiratory History: No Pertinent History Endocrine Medical History: Hypothyroidism Musculoskeletal History: Osteoarthritis, Rheumatoid Arthritis GI Medical History: GERD, Gallbladder Disease History: No Pertinent History Psycho-Social History: No Pertinent History Female Reproductive Disorders: Endometriosis Other Medical History: pernicious anemia - Past Surgical History Past Surgical History: Yes Neuro Surgical History: No Pertinent History Cardiac: No Pertinent History Respiratory: No Pertinent History Gastrointestinal: Appendectomy, Cholecystectomy Genitourinary: No Pertinent History Musculoskeletal: No Pertinent History Female Surgical History: Hysterectomy Other Surgical History: tubes and ovaries removed, partial thyroid removed. Low back surgery 2020 at [facility]. - Social History Smoking Status: Never smoker Exposure to second hand smoke: No Drug Use: none - Social Determinants of Health Will the patient participate in the screening: Declined to provide - Nursing Vital Signs Nursing Vital Signs: Initial Vital Signs Pulse Rate 77 05/24/25 10:33 Respiratory Rate 16 05/24/25 10:33 Blood Pressure 145/86 05/24/25 10:33 O2 Sat by Pulse Oximetry 98 05/24/25 10:33 Pain Scale Pain Intensity 10 - Physical Exam General Appearance: no apparent distress, anxiety Eye Exam: PERRL/EOMI Ears, Nose, Throat Exam: normal ENT inspection, moist mucous membranes Neck Exam: normal inspection, supple, full range of motion, No meningismus Respiratory Exam: normal breath sounds, lungs clear Cardiovascular Exam: regular rate/rhythm, normal heart sounds Gastrointestinal/Abdominal Exam: soft, No tenderness, No distention Back Exam: normal inspection, normal range of motion Mental Status Exam: alert, oriented x 3, 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 Exam: normal speech, PERRL, No facial droop Coordination/Gait Exam: normal cerebellar function Motor/Sensory Exam: no motor deficit, no sensory deficit Skin Exam: normal color, warm, dry, No rash SpO2: 96 Ordered Tests: Active Orders 24 hr Category Date Time Status IV Insertion STAT Care 05/24/25 10:48 Active Medication Summary Discontinued Medications Generic Name Dose Route Start Last Admin Trade Name Orquidea PRN Reason Stop Dose Admin Nalbuphine HCl 5 mg 05/24/25 10:49 05/24/25 11:04 Nalbuphine Hcl 10 Mg/Ml Ampul IV 05/24/25 10:50 5 mg STAT ONE Administration Nalbuphine HCl Confirm 05/24/25 11:00 Nalbuphine Hcl 10 Mg/Ml Ampul Administered 05/24/25 11:01 Dose 10 mg .ROUTE .STK-MED ONE Prochlorperazine Edisylate 5 mg 05/24/25 10:48 05/24/25 11:04 Prochlorperazine Edisylate 10 Mg/2 Ml Vial IV 05/24/25 10:49 5 mg STAT ONE Administration Prochlorperazine Edisylate Confirm 05/24/25 11:00 Prochlorperazine Edisylate 10 Mg/2 Ml Vial Administered 05/24/25 11:01 Dose 10 mg .ROUTE .STK-MED ONE - Progress Progress: re-examined Progress Note: 05/24/25 11:27 Clinically improved, pain controlled at this time, she states that the pharmacy will not have her medicine for another 2 days, she will be discharged and contact her primary care doctor to find out if there is a substitute that she may get instead of Nubain - Departure Departure Disposition: Home Clinical Impression: Migraine Qualifiers: Migraine type: migraine (< 15 days per month) without aura Status migrainosus presence: with status migrainosus Intractability: intractable Qualified Code(s): G43.011 - Migraine without aura, intractable, with status migrainosus Condition: Stable Critical Care Time: No Referrals: LAURA HAYDEN [Primary Care Provider, [facility]] - Follow up with PCP 1 day Instructions: Headache, Adult (DC)
[2025-05-24] MEDS ORDERED: Compazine 10 MG/2 ML ONE (11:00)
[2025-05-24] MEDS ORDERED: Nubain 10 MG/ML ONE (11:00)
[2025-05-24] MEDS: Compazine 10 MG/2 ML IV ONE (11:04)
[2025-05-24] MEDS: Nubain 10 MG/ML IV ONE (11:04)
[2025-05-24 11:28] VITALS: BP 126/78; PULSE 82
[2025-05-24 11:31] VITALS: O2SAT 93
== END 2025-05-24 11:37 | disposition home or self-care (01) ==
LOC: ED 10:25
DX: G43.011 Migraine without aura, intractable, with status migrainosus (principal); I10 Essential (primary) hypertension; Z79.899 Other long term (current) drug therapy